=== PATIENT | female | born 2000 ===

== ENCOUNTER 2021-06-02 15:28 | Outpatient (REF) | payer OTHER, SELFPAY ==
[2021-06-02 17:55] LABS: Appearance Urine HAZY; Color Urine YELLOW; Glucose Urine UA NEG (NEG); Leukocyte Esterase Urine NEG (NEG); Nitrite Urine NEG (NEG); PH 6.5 (5.0-8.0); UACC Culture Trigger NO; Urine Blood 3+ (NEG); Urine Ketones NEG (NEG); Urine Protein NEG (NEG-TRACE)
[2021-06-02 18:03] LABS: Squamous Epithelial Cell Urine 2+ /LPF
[2021-06-02 18:04] LABS: Bacteria Urine 1+ /LPF; RBC Urine 0-2 /HPF (0); WBC Urine 0 /HPF (0-4)
== END 2021-06-02 15:29 | disposition home or self-care (01) ==
LOC: HO.MANLNP 15:28
PROVIDERS: PCP Physician Assistant; Visit Provider Physician Assistant
DX: R30.0 Dysuria (principal)
CPT/HCPCS: 81001

== ENCOUNTER 2021-06-15 14:35 | Outpatient (REF) | payer OTHER, SELFPAY ==
[2021-06-15 17:30] LABS: MANUAL DIFF FLAG NO
[2021-06-15 17:34] LABS: Basophils Absolute Auto 0.1 X10*3/uL (0.0-0.2); Basophils Percent Auto 0.6 % (0-2); Eosinophils Absolute Auto 0.5 X10*3/uL (0.0-0.4); Eosinophils Percent Auto 6.1 % (0-4); Imm Gran Abs Auto 0.02 X10*3/uL (0.00-0.03); Imm Gran Pct Auto 0.2 % (0.0-0.4); Lymphocytes Percent Auto 34.4 % (20-40); Mean Corpuscular HGB Conc 32.5 g/dl (31.0-35.0); Mean Corpuscular Hemoglobin 30.4 pg (27.0-33.0); Mean Corpuscular Volume 93.5 fL (80.0-98.0); Mean Platelet Volume 10.9 fL (9.4-12.3); Monocytes Absolute Auto 0.9 X10*3/uL (0.1-1.2); Monocytes Percent Auto 9.9 % (2-11); Neutrophils Absolute Auto 4.2 x10*3/uL (2.0-8.3); Neutrophils Percent Auto 48.8 % (45-73); Platelet Count 295 X10*3/uL (160-400); Red Blood Count 4.28 X10*6/uL (4.20-5.50); Red Cell Distribution Width 12.7 % (11.0-16.0); White Blood Count 8.7 X10*3/uL (4.8-10.8)
[2021-06-15 17:44] LABS: Alanine Aminotransferase 10 U/L (0-31); Albumin Level 4.1 g/dL (3.5-5.0); Alkaline Phosphatase 39 U/L (39-117); Anion Gap 12 (12-20); Aspartate Amino Transferase 13 U/L (5-31); Bilirubin Total 0.2 mg/dL (0.0-1.0); Blood Urea Nitrogen 10 mg/dL (9-16); C Reactive Protein 0.51 mg/dL (< or = 0.50); Calcium 9.3 mg/dL (8.4-10.2); Carbon Dioxide 24 mmol/L (22-29); Chloride 107 mmol/L (96-108); Estimated Glomerular Filt Rate > 60; Glucose Random 75 mg/dL (60-115); Potassium 4.5 mmol/L (3.3-5.1); Sodium 138 mmol/L (135-145); Total Protein 7.2 g/dL (6.5-8.0)
[2021-06-15 18:06] LABS: Free T4 (Free Thyroxine) 0.86 ng/dL (0.71-1.85); Thyroid Stimulating Hormone 1.74 uIU/mL (0.32-4.0)
[2021-06-15 18:24] LABS: Erythrocyte Sedimentation Rate 7 MM/HR (0-20)
[2021-06-16 17:16] LABS: EBV-NA IgG Index >600.00 U/mL; EBV-VCA IgM Ab <36.00 U/mL
== END 2021-06-15 14:36 | disposition home or self-care (01) ==
LOC: HO.MANLDS 14:35
PROVIDERS: PCP Physician Assistant; Visit Provider Physician Assistant
DX: R59.1 Generalized enlarged lymph nodes (principal)
CPT/HCPCS: 36415; 80053; 84439; 84443; 85025; 85652; 86140; 86664; 86665

== ENCOUNTER 2021-09-23 | Outpatient (REF) | payer OTHER, MEDICAID, SELFPAY | END 2021-09-23 00:01 | disposition home or self-care (01) | LOC: HO.MANLDS | PROVIDERS: Visit Provider Physician Assistant | DX: Z13.89 Encounter for screening for other disorder (principal) ==

== ENCOUNTER 2023-03-22 11:55 | Outpatient (REF) | payer OTHER, SELFPAY ==
[2023-03-22 13:42] LABS: Appearance Urine Cloudy; Color Urine Yellow; Glucose Urine UA Negative (Negative); Leukocyte Esterase Urine Small (1+) (Negative); Nitrite Urine Negative (Negative); UMIC TRIGGER UACC YES; Urine Blood Negative (Negative); Urine Ketones Negative (Negative); Urine Protein Negative (Neg-Trace)
[2023-03-22 13:47] LABS: Bacteria Urine 2+ (None Seen); Hyaline Casts Urine 0-2 /LPF (0-2); Squamous Epithelial Cell Urine >20 /HPF (0-2); UACC Culture Trigger YES
== END 2023-03-22 11:56 | disposition home or self-care (01) ==
LOC: HO.MANLDS 11:55
PROVIDERS: Visit Provider Physician Assistant
DX: R30.0 Dysuria (principal)
CPT/HCPCS: 81001; 87086

== ENCOUNTER 2024-10-03 14:43 | Outpatient (REF) | payer OTHER, SELFPAY ==
--- OUTSIDE RECORDS SUMMARY | 2024-10-03 15:19 | XMS_ITS | Data Portability ---
Author Organization [facility] Telehealth Patient Home Address [address] [place] [address] Assessment Encounter Date Assessment Date Assessment LastModified by Organization Details LastModified Time 03/22/2023 03/22/2023 Patient agreed and verbally consents to this audio and video Telehealth appt via a secure platform [email or web address] Not available 03/22/2023 09:54:51 08/30/2023 08/30/2023 Patient presented for medication refill. Patient tolerating medication well at current dose without adverse effects. Refilled as below. Discussed plan with patient, who expressed understanding. Follow up as noted below. 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 REVIEW OF PRIOR EXTERNAL NOTES/RESULTS, ORDERING OF TEST(S) CATEGORY 2. ASSESSMENT REQUIRING INDEPENDENT HISTORIAN(S) INCLUDE WHO THE HISTORIAN IS AND RELATION TO PT AND WHY PT IS UNABLE TO GIVE COMPLETE HISTORY ELEMENT 3: RISK (LOW) RISK OF COMPLICATIONS AND/OR MORBIDITY OR MORTALITY OF PATIENT MANAGEMENT PROVIDER MUST THOROUGHLY DOCUMENT ALL OF THE ELEMENTS COVERED Not available 09/20/2023 14:32:00 Plan of Treatment Reminders Order Date Submit Date Provider Last Modified By Organization Details Last Modified Time Details Appointments NEW PROBLEM 15 2024 02:15P NUBIA HWANG Not available Not available Not available Lab vitamin D, 25-hydrox y, total, serum 2024 025 [facility], [address] [place] [address], [id number], 10/03/2024 14:38:12 TSH + free T4, serum 2024 025 [facility], [address] [place] [address], [id number], 10/03/2024 14:38:12 vitamin B12 + folate, serum or blood 2024 025 [facility], [address] [place] [address], [address], 10/03/2024 14:38:12 CBC w/ auto diff 2024 025 [facility], [address] [place] [address], [address], 10/03/2024 14:38:12 iron + TIBC + ferritin, serum 2024 025 [facility], [address] [place] [address], [address], 10/03/2024 14:38:12 tsi (thyroid- stimulati ng immunoglo bulin), serum 2024 025 [facility], [address] [place] [address], [id number], 10/03/2024 14:38:12 thyroid peroxidas e (tpo) Ab, serum 2024 025 [facility], [address] [place] [address], [address], 10/03/2024 14:38:12 CMP, serum or plasma 2024 025 [facility], [address] [place] [address], [address], 10/03/2024 14:33:30 urinalysi s complete, reflex culture 2023 024 [facility], [address] [place] [address], [id number], 03/23/2023 11:24:10 Referral None recorded. Procedures None recorded. Surgeries None recorded. Imaging None recorded. Medication Orders bupropion HCl XL 150 mg 24 hr tablet, extended release 2024 025 [facility] [address] [place], [address], 10/03/2024 14:31:51 escitalop ting 20 mg tablet 2023 024 [facility] [address] [place], [address], 10/04/2023 11:41:24 diclofena c sodium 75 mg tablet,de layed release 2023 024 [email or web address] [facility] [address] [place], [address], 10/03/2024 14:19:49 escitalop ting 10 mg tablet 2023 024 [facility] [address] [place], [address], 10/04/2023 11:41:15 Patient TargetsNo targets recorded. Patient InstructionsNo instructions recorded. Reason for Referral None Reported. Results Created Date Observation Date Name Description Value Unit Range Abnormal Flag Note LastModifiedBy Organization Detail LastModifiedTime 02/24/2002/23/2023 urina lysis , dipst ick Leukocytes Small Not Available [facility] [address], [place], [address], 02/23/2023 14:03:54 02/24/20 23 02/23/2023 urina lysis , dipst ick Nitrite negati ve Not Available [facility] [address], [place], [address], 02/23/2023 14:03:54 02/24/20 23 02/23/2023 urina lysis , dipst ick Urobilinogen 1 Not Available [facility] [address], [place], [address], 02/23/2023 14:03:54 02/24/20 23 02/23/2023 urina lysis , dipst ick Protein Trace Not Available [address], [place], [address], 02/23/2023 14:03:54 02/24/20 23 02/23/2023 urina lysis , dipst ick pH 5.5 Not Available [address], [place], [address], 02/23/2023 14:03:54 02/24/20 23 02/23/2023 urina lysis , dipst ick Blood Negati ve Not Available [address], [place], [address], 02/23/2023 14:03:54 02/24/20 23 02/23/2023 urina lysis , dipst ick Specific [place] 1.015 Not Available [address], [place], [address], 02/23/2023 14:03:54 02/24/20 23 02/23/2023 urina lysis , dipst ick Ketone Trace Not Available [address], [place], [address], 02/23/2023 14:03:54 02/24/20 23 02/23/2023 urina lysis , dipst ick Bilirubin Negati ve Not Available [address], [place], [address], 02/23/2023 14:03:54 02/24/2002/23/2023 urina lysis , dipst ick Glucose Negati ve Not Available [facility] Internal [facility] [address], [place], [address], 02/23/2023 14:03:54 02/24/2002/23/2023 urina lysis , dipst ick Appearance Cloudy Not Available [facility] [address], [place], [address], 02/23/2023 14:03:54 02/24/20 23 02/23/2023 urina lysis , dipst ick Color Dark Yellow Not Available [facility] Internal [facility] [address], [place], [address], 02/23/2023 14:03:54 Result Notes None recorded. 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 Not Available [facility] 2 12:15:21 COVID-19 694502478 Active 2020 Not Available [facility] 2 12:15:21 Injury of nose 75464386 Active 2020 Not Available [facility] 2 12:15:21 Proteinur ia 95011847 Active 2020 Not Available [facility] 2 12:15:20 Menorrhag ia 930465204 Active 2020 Not Available [facility] 2 12:15:21 Plantar wart of right foot 296871714567 02662 Active 2020 Not Available [facility] 2 12:15:20 Concussio n injury of brain 652242962 Active 2020 Not Available [facility] 2 12:15:20 Feeling of lump in throat 015803395 Active 2021 Not Available [facility] 2 12:15:21 Dyspnea at rest 599555899 Active 2022 NUBIA NAVARRETE [address] [place], [address], [facility] 3 09:49:36 Wheezing 11027950 Active 2022 NUBIA NAVARRETE [address] [place], [address], [facility] 3 09:49:42 Chronic cough 75717627 Active 2022 NUBIA NAVARRETE [address] [place], [address], [facility] 3 10:49:46 Dysuria 66154142 Active 2022 NUBIA NAVARRETE [address] [place], [address], [facility] 3 14:08:42 Low back pain 986961763 Active 2023 NUBIA NAVARRETE [address] [place], [address], [facility] 4 14:04:10 Rib pain 343892752 Active 2023 NUBIA NAVARRETE [address] [place], [address], [facility] 4 14:04:20 Acute urinary tract infection 973746672 Active 2024 NUBIA NAVARRETE [address] [place], [address], [facility] 5 16:40:12 Fatigue 77170507 Active 2024 NUBIA NAVARRETE [address] [place], [address], [facility] 5 14:29:34 Major depressio n single episode, in partial remission 63690548 Active 2024 NUBIA NAVARRETE [address] [place], [address], [facility] 5 14:30:52 Cyst of skin 914867539 Active 2024 NUBIA NAVARRETE [address] [place], [address], [facility] 5 14:33:10 Problem Notes None recorded. Medical Equipment None Reported. Allergies No known drug allergies Medications Name Sig Start Date Stop Date Status Note LastModified by Organization Details LastModified Time prednisone 10 mg tablet PLEASE SEE ATTACHED FOR DETAILED DIRECTION S 04/30 completed Not Available Not Available Not Available doxycycline hyclate 100 mg capsule TAKE 1 CAPSULE BY MOUTH ONCE A DAY FOR 7 DAYS 10/03 completed Not Available Not Available Not Available fluconazole 150 mg tablet TAKE 1 TABLET BY MOUTH EVERY DAY FOR 3 DAYS 06/15 completed Not Available Not Available Not Available benzonatate 200 mg capsule TAKE 1 CAPSULE BY MOUTH THREE TIMES A DAY NEEDED FOR 14 DAYS 04/30 completed Not Available Not Available Not Available amoxicillin 250 mg-potassiu m clavulanate 62.5 mg/5 mL oral suspension Take 15 mL twice a day by oral route with meals for 10 days. 06/02 completed Not Available Not Available Not Available sulfamethox azole 800 mg-trimetho prim 160 mg tablet TAKE 1 TABLET BY MOUTH EVERY 12 HOURS FOR 7 DAYS 12/05 completed Not Available Not Available Not Available triamcinolo ne acetonide 0.1 % topical cream APPLY THIN COAT TO AFFECTED AREA TWICE A DAY 06/02 completed Not Available Not Available Not Available amoxicillin 875 mg tablet TAKE 1 TABLET BY MOUTH EVERY 12 HOURS FOR 7 DAYS 04/30 completed Not Available Not Available Not Available benzonatate 100 mg capsule TAKE 2 CAPSULES BY MOUTH 3 TIMES A DAY NEEDED active Not Available Not Available No t Available cephalexin 500 mg capsule TAKE 1 CAPSULE BY MOUTH EVERY 12 HOURS FOR 7 DAYS 12/05 completed Not Available Not Available Not Available clotrimazol e-betametha sone 1 %-0.05 % topical cream APPLY TO AFFECTED AREA IN THE MORNING AND EVENING FOR 2 WEEKS 10/10 completed Not Available Not Available Not Available sulfamethox azole 200 mg-trimetho prim 40 mg/5 mL oral suspension TAKE 20 ML TWICE A DAY BY ORAL ROUTE FOR 3 DAYS. 10/10 completed Not Available Not Available Not Available omeprazole 20 mg capsule,del ayed release TAKE 1 CAPSULE EVERY DAY BY ORAL ROUTE FOR 14 DAYS. 06/02 completed Not Available Not Available Not Available diclofenac sodium 75 mg tablet,luis yed release TAKE 1 TABLET TWICE A DAY BY MOUTH DIRECTED FOR 15 DAYS. 10/03 completed Not Available Not Available Not Available cephalexin 500 mg tablet TAKE 1 TABLET BY MOUTH TWICE A DAY FOR 5 DAYS 08/29 completed Not Available Not Available Not Available amoxicillin 400 mg/5 mL oral suspension TAKE 6.25 ML EVERY 8 HOURS BY ORAL ROUTE FOR 7 DAYS. 04/30 completed Not Available Not Available Not Available epinephrine 0.3 mg/0.3 mL injection, auto-inject or INJECT 1 PEN INJECTOR SINGLE DOSE NEEDED active Not Available Not Available No t Available albuterol sulfate HFA 90 mcg/actuati on aerosol inhaler INHALE 2 PUFFS EVERY 4 HOURS BY INHALATIO N ROUTE NEEDED active Not Available Not Available No t Available fluticasone propionate 50 mcg/actuati on nasal spray,suspe nsion SPRAY 1 SPRAY EVERY DAY BY INTRANASA L ROUTE FOR 30 DAYS. 06/02 completed Not Available Not Available Not Available amoxicillin 875 mg-potassiu m clavulanate 125 mg tablet 06/02 completed Not Available Not Available Not Available azithromyci n 500 mg tablet TAKE 1 TABLET EVERY DAY BY ORAL ROUTE DIRECTED FOR 3 DAYS. 10/10 completed Not Available Not Available Not Available escitalopra m 10 mg tablet TAKE 1 TABLET BY MOUTH EVERY DAY 10/03 completed Not Available Not Available Not Available escitalopra m 20 mg tablet TAKE 1 TABLET BY MOUTH EVERY DAY active Not Available Not Available No t Available bupropion HCl XL 150 mg 24 hr tablet, extended release Take 1 tablet every day by oral route in the morning for 30 days. 2024 active Not Available Not Available Not Avai lable nitrofurant oin monohydrate /macrocryst als 100 mg capsule TAKE 1 CAPSULE BY MOUTH EVERY 12 HOURS FOR 7 DAYS 10/03 completed Not Available Not Available Not Available levofloxaci n 250 mg/10 mL oral solution TAKE 10 ML BY MOUTH EVERY DAY FOR 3 DAYS 06/15 completed Not Available Not Available Not Available Rhianna (28) 3 mg-0.02 mg tablet TAKE 1 TABLET BY MOUTH EVERY DAY active Not Available Not Available No t Available Vitals Date Recorded Body weight Heart rate Oxygen saturation Oxygen saturation in Arterial blood by Pulse oximetry Systolic And Diastolic Provider Name and Address Organization Details Last Updated DateTime 4 47859.3 4 g 75 /min 99 % 99 % 100/68 mm[Hg] Juana Horta [facility] 4 14:24:59 Date Recorded Body height Body mass index (BMI) Body weight Heart rate Oxygen saturation Oxygen saturation in Arterial blood by Pulse oximetry Systolic And Diastolic Provider Name and Address Organization Details Last Updated DateTime 4 154.94 cm 24.2 kg/m2 84973.8 2 g 76 /min 9 % 9 % 100/68 mm[Hg] Esperanza Dalton [facility] 4 13:55:57 Date Recorded Body height Body mass index (BMI) Body weight Heart rate Oxygen saturation Oxygen saturation in Arterial blood by Pulse oximetry Systolic And Diastolic Provider Name and Address Organization Details Last Updated DateTime 4 154.94 cm 23.8 kg/m2 84193.6 4 g 78 /min 97 % 97 % 108/70 mm[Hg] Jonathan Herrera, DO [address] [place], [address], [facility] 4 14:21:34 Date Recorded Body height Body mass index (BMI) Body weight Heart rate Oxygen saturation Oxygen saturation in Arterial blood by Pulse oximetry Systolic And Diastolic Provider Name and Address Organization Details Last Updated DateTime 5 154.94 cm 28.3 kg/m2 11408.8 6 g 67 /min 95 % 95 % 104/70 mm[Hg] Juana Drew [facility] 5 14:24:33 Social History Question Answer Notes LastModified by [facility] Details LastModified Time Tobacco Smoking Status Never Smoker Jonathan LiraBrielle Herrera, DO [address] [place] [address], [address] 10/10/2020 11:10:37 What Is Your Level Of Caffeine Consumption? Moderate Information not available 10/10/2020 What Is The Highest Grade Or Level Of School You Have Completed Or The Highest Degree You Have Received? [id number] Information not available 10/10/2020 What Was The Date Of Your Most Recent Tobacco Screening? 10/03/2024 [email or web address] Information not available 10/03/2024 Sex: Unknown Functional Status Question Answer Note LastModified by [employer] Details LastModified Time Do you use any illicit or recreational drugs? No Information not available 10/10/2020 Do you or have you ever used any other forms of tobacco or nicotine? No Information not available 10/10/2020 What is your level of alcohol consumption? None Information not available 10/10/2020 Mental Status None recorded. Family History Relationship Description Onset Age of this Age Resolved Age Notes LastModified by Organization Details LastModified Time Maternal Grandmother Arthritis [email or web address] Not available 12:10:25 Maternal Grandfather Arthritis jvanasse Not available 12:10:25 Mother Arthritis jvanasse Not availabl e 10/10/2020 12:10:25 Mother Osteoporosis jvanasse Not avail able 10/10/2020 12:10:35 Medical History No medical history recorded. Gynecological History Statement/Question Response Age at Menarche 12 Obstetrics History GPAL:G 0 P 0 0 0 0 Immunizations Vaccine Type Date Status Note Provider Nam e and Address Organization Details Recorded Time Tdap 4 completed Maddie dias [facility] 10/07/2020 08:43:23 varicella 3 completed Maddie Balicki null, [facility] 10/07/2020 08:43:41 MMR 4 completed Maddie Balicki null, [facility] 10/07/2020 08:44:21 MMR 6 completed Maddie Balicki null, [facility] 10/07/2020 08:44:27 Pneumococcal conjugate PCV 13 3 completed Maddie Balicki null, [facility] 10/07/2020 08:44:56 Pneumococcal conjugate PCV 13 3 completed Maddie Rodríguezicki null, [facility] 10/07/2020 08:45:02 HepB-CpG 2 completed Maddie Balicki null, [facility] 10/07/2020 08:45:40 HepB-CpG 2 completed Maddie Balicki null, [facility] 10/07/2020 08:45:46 HepB-CpG 3 completed Maddie Balicki null, [facility] 10/07/2020 08:45:52 COVID-19, mRNA, LNP-S, PF, 30 mcg/0.3 mL dose 2 completed Shelia Yeager null, [facility] 09/23/2021 12:22:08 Past Encounters Encounter ID Performer Location Encounter Start Date Encounter Closed Date Diagnosis/Indication Diagnosis SNOMED-CT Code Diagnosis ICD10 Code Diagnosis Note [id number] Jonathan Herrera DO [facility] [address] [facility] [address] 10/10/2020 10:51:44 10/10/2020 12:09:33 Posterior rhinorrhea 95424232 R09.82 need to have her try this also we will have her get a xray [id number] Jonathan Herrera [facility] Internal [facility] [address] [facility] [address] 12/12/2020 08:13:40 12/12/2020 14:20:00 Insect bite reaction 816682987 T63.481A can try use of topical to help resolve rest of rash [id number] Jonathan Herrera [facility] Internal [facility] [address] [facility] [address] [address] 06/02/2021 13:59:47 06/02/2021 15:56:33 Candidiasis of vagina 61488041 B37.3 fu with treatment Dysuria 79044452 R30.0 will fu with urine culture [id number] Jonathan Herrera [facility] Internal [facility] [address] [facility] [address] 06/15/2021 13:43:21 06/15/2021 14:41:02 Lymphadenopathy 68168762 R59.1 will check lymph nodes and thyroid [id number] Jonathan Herrera [facility] Internal [facility] [address] [facility] [address] 04/06/2022 09:15:36 04/06/2022 10:25:04 Dyspnea at rest 193260185 R06.02 will monitor her progress Wheezing 93928120 R06.2 will start on prednisone taper and devendra gonzales monitor [id number] Jonathan Herrera [facility] Internal [facility] [address] [facility] [address] 02/23/2023 13:54:57 02/25/2023 09:20:32 Dysuria 61852662 R30.0 will f/u with urine culturesta rt macrobid for the next 7 days BID [id number] Jonathan Herrera [facility] Internal [facility] [address] [facility] [address] 03/22/2023 08:15:08 03/22/2023 10:13:30 Dysuria 07154133 R30.0 recheck urine [id number] Jonathan Herrera [facility] Internal [facility] [address] [facility] [address] [place] [address] 08/30/2023 14:13:37 08/30/2023 14:58:06 Renewal of prescription 731241338 Z76.0 Depression screening 171 125989 Z13.31 will beging escitalopr am [id number] Jonathan Herrera [facility] [address] [facility] [address] [facility] [place] [address] 09/06/2023 13:45:47 09/06/2023 15:33:50 Depression screening 478827850 Z13.31 0 Low back pain 466614877 M54.59 will start on diclofenac given suggested list of OTC topical patches to try as well Rib pain 515144248 R07.8 1 related to back injuryposs ible [id number] Jonathan Herrera [facility] [address] [facility] [address] [facility] [place] [address] 09/20/2023 14:15:36 09/20/2023 15:47:09 Depression screening 442525414 Z13.31 will increase the dose to 20mg [id number] Jonathan Herrera [facility] [address] [facility] [address] [facility] [place] [address] 10/03/2024 14:09:59 10/03/2024 14:49:25 Depression screening 860540867 Z13.31 0 Fatigue 08170379 R53.83 will set up with blood work Major depr ession single episode, in partial remission 82756092 F32.4 will trial a course of bupropion Cyst of skin 542437409 L 72.9 will f/u with derm Health Concerns Section Related Observation LastModified by Organization Detai ls LastModified Time None Recorded Concern Status LastModified by Organization Details LastModified Time None Recorded Advance Directives Directive None Recorded Payers Insurance Date Sequence Insurance Name Policy Number Policy Gant Covered Member ID Gant Member ID Guarantor Name 10/03/2024 1 [facility] [id number] Jenn Fraire [id number] Jenn Fraire 10/03/2024 1 [facility] PRIOR TO 06/19/2022 - [facility] (MEDICAID) Jenn Fraire [id number] Jenn Fraire 10/03/2024 1 [facility] Jenn Fraire [id number] Jenn Fraire 08/30/2023 1 [place] [id number] Kaleb Marco A [id number] Jenn Fraire 10/03/2024 2 [place] Andrew Marco A [id number] Jenn Fraire Notes Date Note Type Note Provider Name and Address Organization Details Recorded Time 4 text/htm l c/o UTI symptoms telemed phone callpatient consents to phone call patient had UTI symptoms beginning of this monthwas given Macrobidthe patient reports similar symptomswould like to retest her urineorder put in and patient will come to our lab to have it donewe will review the results when the come in with the patient NUBIA NAVARRETE [address] [place] [address], [phone], [facility] Internal [facility] 03/22/2023 09:57:14 4 text/htm l here for chk and is not feeling well and is isolated and quick to anger and stressed and ocd and mulls about it Jonathan Herrera DO [address] [place] [address], [address], [facility] Internal [facility] 08/30/2023 14:51:42 4 text/htm l c/o low back problem the patient reports that a hammock broke, she ended up falling down on the metal bar at the bottomthis happened today according to patientdeveloped a bruise and back painthe patient also has rib pain probably from twisting to prevent her fallsuggested using icey-hot, lidocaine patches or biofreeze to help with the musk pain sent in diclofenac for the inflammation and back pain otherwise monitor the area and continue with conservative treatmentno other interventions required at this time depression screening 0 no other questions today NUBIA NAVARRETE [address] [place], [address], [facility] Internal [facility] 09/06/2023 14:12:22 4 text/htm l here for rechkand is doing much better and feeling welltolerates the escitalopram Jonathan Herrera DO [address] [place] [address], [address], [facility] 09/20/2023 14:32:25 5 text/htm l c/o fatigue the patient has been having going fatigue the patient it may have started on the lexapro especially with libido and fatigue, takes it at night around 10:30 pmrecommended either taking it earlier or adding bupropion, patient agrees to the trialing the bupropionthe patient would like BW checked, her dad has some serious thyroid issues the patient had a bruise on her head from falling crowd surfacingdenies any neuro deficits, headache, vision changes the pt has a cyst on the skin from the fallgoing derm will monitor, no obvious impairmentsotherwise doing well NUBIA NAVARRETE [address] [facility], [place], [id number], [facility] Medicine 10/03/2024 14:41:55 OBGyn Episode No OBEpisode recorded.
[2024-10-03 18:05] LABS: MANUAL DIFF FLAG NO
[2024-10-03 18:21] LABS: Hematocrit 38.0 % (37.0-47.0); Hemoglobin 12.2 g/dl (12.0-16.0); Imm Gran Abs Auto 0.01 X10*3/uL (0.00-0.03); Imm Gran Pct Auto 0.1 % (0.0-0.4); Lymphocytes Absolute Auto 2.4 X10*3/uL (1.2-4.9); Mean Corpuscular HGB Conc 32.1 g/dl (31.0-35.0); Mean Corpuscular Hemoglobin 30.4 pg (27.0-33.0); Mean Corpuscular Volume 94.8 fL (80.0-98.0); NRBC Abs Auto 0.000 X10*3/uL (0.0-0.012); NRBC Pct Auto 0.0 /100WBC (0.0-0.2); Platelet Count 313 X10*3/uL (160-400); Red Blood Count 4.01 X10*6/uL (4.20-5.50); White Blood Count 7.4 X10*3/uL (4.8-10.8)
[2024-10-03 18:39] LABS: Alanine Aminotransferase 21 U/L (0-31); Albumin Level 4.0 g/dL (3.5-5.0); Alkaline Phosphatase 48 U/L (39-117); Anion Gap 12 (12-20); Aspartate Amino Transferase 22 U/L (5-31); Blood Urea Nitrogen 10 mg/dL (9-16); Calcium 8.8 mg/dL (8.4-10.2); Carbon Dioxide 22 mmol/L (22-29); Chloride 108 mmol/L (96-108); Estimated Glomerular Filt Rate > 60; Iron 94 mcg/dL (30-160); Percent Iron Saturation 24 % (15-50); Potassium 4.2 mmol/L (3.3-5.1); Sodium 138 mmol/L (135-145); Total Iron Binding Capacity 385 mcg/dL (228-428); Total Protein 6.9 g/dL (6.5-8.0); Unsaturated Iron Binding 291 ug/dL
[2024-10-03 19:00] LABS: Free T4 (Free Thyroxine) 0.86 ng/dL (0.71-1.85); Thyroid Stimulating Hormone 1.23 uIU/mL (0.32-4.0)
[2024-10-03 19:05] LABS: Folate 10.9 ng/mL (> or = 4.0); Vitamin B12 319 pg/mL (200-900)
== END 2024-10-03 14:44 | disposition home or self-care (01) ==
LOC: HO.MANLDS 14:43
PROVIDERS: Visit Provider Physician Assistant
DX: R53.83 Other fatigue (principal)
CPT/HCPCS: 36415; 80053; 82306; 82607; 82746; 83540; 84439; 84443; 84445; 85025; 86376